=== PATIENT | male | born 1975 | race Hispanic/Latino ===

== ENCOUNTER → 2025-01-03 | Outpatient (REF) | payer SELFPAY ==
[~2025-01-03] MED LIST: FENTANYL CITRATE/PF 100MCG/2 ML INJ ONE; JANUMET XR 1001 EACH PO; LIDOCAINE HCL 1% 30ML-PF VIAL ONE; MIDAZOLAM HCL 2 MG/2 ML VIAL ONE; NOVOLIN N100 UNIT/1 SC; NOVOLIN R100 UNIT/1 SC; OMEPRAZOLE40 MG PO; SODIUM CHLORIDE 0.9% 250ML 250 ML ONE; ZESTRIL10 MG PO
[2025-01-03 08:03] LABS: EOSINOPHILS # (AUTO) 0.1 (0.0-0.4); EOSINOPHILS % 2.3 % (0.0-6.0); HEMATOCRIT 30.4 % (38.2-49.6); HEMOGLOBIN 9.1 g/dL (14.0-18.0); LYMPHOCYTES # (AUTO) 0.7 (1.0-3.2); MEAN CORPUSCULAR HEMOGLOBIN 22.5 pg (28-32); MEAN CORPUSCULAR HGB CONC 29.9 g/dL (31-35); MEAN CORPUSCULAR VOLUME 75.2 fL (81-99); MONOCYTES # (AUTO) 0.3 (0.2-0.8); MONOCYTES % 12.5 % (4.4-11.3); NEUTROPHILS # (AUTO) 1.5 (2.1-6.9); NEUTROPHILS % 58.2 % (38.7-80.0); PLATELET COUNT 135 x10e3/uL (140-360); RED BLOOD COUNT 4.04 x10e6/uL (4.3-5.7); RED CELL DISTRIBUTION WIDTH 17.5 % (11.7-14.4); WHITE BLOOD COUNT 2.63 x10e3/uL (4.8-10.8)
[2025-01-03 08:38] LABS: INR 1.03; PROTHROMBIN TIME 14.4 seconds (11.9-14.5)
[2025-01-03 08:39] LABS: PARTIAL THROMBOPLASTIN TIME 31.4 seconds (23.8-35.5)
== END ==
LOC: US 07:35
PROVIDERS: ATTEND Nurse Practitioner Family
DX: R74.8 Abnormal levels of other serum enzymes (principal); K74.00 Hepatic fibrosis, unspecified
CPT/HCPCS: 36415; 47000; 76942; 85025; 85610; 85730; 88307; 88313; J2003; J2250; J3010; J7050; 88342